=== PATIENT | male | born 1990 | race African-American/Black ===

== ENCOUNTER 2023-02-01 01:05 | Emergency (ER) | payer SELFPAY ==
[~2023-02-01] VITALS: Ht 188 cm; Wt 100.0 kg
[2023-02-01 01:28] VITALS: BP 134/86
== END 2023-02-01 01:45 | disposition left against medical advice (07) ==
LOC: EMS 01:06
DX: S16.1XXA Strain of muscle, fascia and tendon at neck level, initial encounter (principal); F17.210 Nicotine dependence, cigarettes, uncomplicated; V49.9XXA Car occupant (driver) (passenger) injured in unspecified traffic accident, initial encounter; W22.10XA Striking against or struck by unspecified automobile airbag, initial encounter; Y93.89 Activity, other specified; Y92.89 Other specified places as the place of occurrence of the external cause; Y99.8 Other external cause status
CPT/HCPCS: 72040; 99283